=== PATIENT | female | born 1985 | race African-American/Black ===

== ENCOUNTER 2023-07-20 10:05 | Outpatient (AMB) | payer OTHER, SELFPAY ==
--- NOTE | 2023-07-20 10:07 | MHC.PC.OV ---
Vital Signs 07/20/23 10:10 07/20/23 10:41 Height 5 ft 3 in Weight 158 lb 4 oz BMI 28.0 BP 120/94 H 120/84 Blood Pressure Location Lt brachial Position Sitting Pulse 85 Pulse Source Pulse Oximeter Pulse Oximetry (%) 99 Oxygen Delivery Method Room Air Intake Visit Reasons: Last Scourer Annual Physical~ Is last menstrual period known: Yes Last menstrual period: 07/20/23 Allergies No Known Allergies Allergy (Verified 07/20/23 10:50) Tobacco use date assessed: 08/19/23 Dental Screening Dental Screen Date: 07/20/23 Did you have a dental visit in the last 12 months?: Yes Did you have a dental problem in the last 6 months where you did not have access to dental care?: No Was dental information given to patient?: No HPI HPI Comments History of Present Illness Details The patient is a 38-year-old female in today to establish care and have an annual physical exam. She is up-to-date with OBGYN, her last appointment was through [facility] on 06/01/2023. She is due for mammogram next year. She is up-to-date with her immunizations. She is currently employed as a certified nurse's aide. She has a past medical history significant for anemia. She has no complaints at time of appointment [facility] Medical History (Updated 07/20/23 @ 13:47 by ARLETTE Beckford) History of anemia Surgical History (Updated 07/20/23 @ 10:19 by Tianna Marcano MA) History of appendectomy Social History Housing: Apartment Patient Tobacco Use Status: Never used Tobacco e-Cigarette/Vaping Use: Never Used service: No Current occupational status: employed Current occupational exposures/hazards: No Cognitive needs: No Hearing needs: No Vision needs: No Female Reproductive History Menstrual Date of last menstrual period: 07/20/23 Questionnaire PHQ-9 Over the last 2 weeks, how often have you been bothered by any of the following problems? 1. Little interest or pleasure in doing things: not at all 2. Feeling down, depressed, or hopeless: not at all 3. Trouble falling or staying asleep, or sleeping too much: not at all 4. Feeling tired or having little energy: more than half the days 5. Poor appetite or overeating: not at all 6. Feeling bad about yourself - or that you are a failure or have let yourself or your family down: not at all 7. Trouble concentrating on things, such as reading the newspaper or watching television: not at all 8. Moving or speaking so slowly that other people could have noticed. Or the opposite - being so fidgety or restless that you have been moving around a lot more than usual: not at all 9. Thoughts that you would be better off or of hurting yourself in some way: not at all Total score: 2 Depression Screening Interpretation: Negative Depression Screening Done: Yes 71957 - PHQ-9 Billing: Yes Source: Developed by Drs. Luis Daniel Gore, Shy Motta, Cole Brady and colleagues, with an educational shine from [employer]. Thrive Questionnaire Date Thrive assessed: 07/20/23 I am a: Patient What is your living situation today?: I have a steady place to live Within the past 12 months, did the food you bought not last and you didn't have the money to get more?: Never true Within the past 12 months, did you worry whether your food would run out before you got money to buy more?: Never true Do you have trouble paying for medicines?: No Do you have trouble getting transportation to medical appointments?: No Do you have trouble paying your heating and electricity bill?: No Do you have trouble taking care of your child, family member or friend?: No Do you have trouble with day-to-day activities such as bathing, preparing meals, shopping, managing finances, etc.?: No Are you currently unemployed and looking for a job?: No Are you interested in more education?: Yes Please select the resources that you would like help with: Education Currently or been in a relationship where the following occur: no concerns reported AUDIT C Alcohol Use Questionnaire (AUDIT-C) 1. How often do you have a drink containing alcohol?: Never 3. How often do you have six or more drinks on one occasion?: Never Total Score: 0 Score Reviewed/Action Taken: Yes MORENITA-7 AMB Questionnaire MORENITA-7 Date MORENITA - 7 assessed: 07/20/23 Feeling nervous, anxious, or on edge: 0 = Not at all Not being able to stop or control worryin = Not at all Worrying too much about different things: 0 = Not at all Trouble relaxin = Not at all Being so restless that it is hard to sit still: 0 = Not at all Becoming easily annoyed or irritable: 0 = Not at all Feeling afraid as if something awful might happen: 0 = Not at all Total MORENITA-7 score (0-4 normal; 5-9 mild; 10-14 moderate; 15-21 severe): 0 Source: Developed by Drs. Luis Daniel Gore, Shy Motta, Cole Brady and colleagues, with an educational shine from [employer]. MORENITA-7 Assessment Billing MORENITA-7 Assessment Tool: MORENITA-7 Assessment 57029 Physical exam (Primary Care) Vital Signs: Last Vital Signs Pulse 85 07/20/23 10:10 BP 120/84 07/20/23 10:41 Pulse Ox 99 07/20/23 10:10 Oxygen Delivery Method Room Air 07/20/23 10:10 Care Plan Goal for BP management: Vital signs reviewed and are stable BMI result Body Mass Index 28.0 Tobacco/Smoking Status: Tobacco use Status Tobacco use date assessed 08/19/23 07/20/23 10:15 Patient Tobacco Use Status Never used Tobacco 07/20/23 10:15 e-Cigarette/Vaping Use Never Used 07/20/23 10:15 PHQ-9: PHQ-9 Score PHQ-9: Total score 2 07/20/23 11:00 Depression Screening Interpretation: Negative Thrive Assessment: Date of Thrive Assessment Date Thrive assessed 07/20/23 07/20/23 11:00 Currently or been in a relationship where the following occur: no concerns reported Const General: cooperative and no acute distress Orientation/consciousness: patient oriented x3 Limitations: no limitations HENMT Head: Yes normal to inspection and Yes normocephalic Ears: TM's normal bilaterally General nose exam: Normal external nose present and Normal septum present Teeth and gingiva: dentition normal Eyes General: appearance normal, both eyes and all related structures Sclerae: sclerae normal Pupils: Equal, round and reactive pupils present EOM: EOMs intact bilaterally Direct Ophthalmoscopy: normal light reflex and no photophobia Neck Neck: Yes normal visual inspection, Yes full ROM and Yes no lymphadenopathy Resp Effort & Inspection: normal respiratory effort Auscultation: clear to auscultation bilaterally Cardio Rate: regular rate Rhythm: regular rhythm Heart sounds: S1 normal heart sound present and S2 normal heart sound present GI Inspection: Yes normal to inspection Auscultation: normal bowel sounds General: Yes no CVA tenderness Back/Spine/Pelvis Back: no CVA tenderness Skin General skin exam: no rashes or lesions noted Neuro General: patient oriented x3 Cranial nerves: Yes CN's II-XII intact bilaterally and Yes Equal, round and reactive pupils present Deep tendon reflexes (DTR's): Right patellar reflex intensity grade: 2+ and Left patellar reflex intensity grade: 2+ Extrem General: Yes normal to inspection and Yes full ROM Psych Insight: Good insight present (Psych) Judgement: Good judgement present (Psych) Results Reviewed Results Reviewed: Will call patient with lab results Assessment and Plan Assessment & Plan (1) Physical exam: Comment: Will draw CBC, CMP, UA, TSH, T4, iron profile, vitamin-D, lipid profile. Code(s): Z. - Encounter for general adult medical examination without abnormal findings Plan Patient will have follow-up physical exam in 1 year. Orders: Orders Complete Blood Count Auto Diff 07/20/23 Z00.00 - Encounter for general adult medical examination without abnormal findings Vitamin D 25-OH (D2 and D3) 07/20/23 Z00.00 - Encounter for general adult medical examination without abnormal findings Comprehensive Met. Panel 07/20/23 Z00.00 - Encounter for general adult medical examination without abnormal findings IRON PROFILE 07/20/23 Z00.00 - Encounter for general adult medical examination without abnormal findings Lipid Panel 07/20/23 Z00.00 - Encounter for general adult medical examination without abnormal findings UA CC w/rflx Micro + Cult 07/20/23 Z00.00 - Encounter for general adult medical examination without abnormal findings TSH reflex Free T4 07/20/23 Z00.00 - Encounter for general adult medical examination without abnormal findings Referrals Dermatology Referral B07.9 - Viral wart, unspecified Coding Level of Care Code New Pt Level 4 (02600) Diagnoses Physical exam Z00.00 Additional Codes MORENITA-7 Assessment Billing - MORENITA-7 Assessment Tool: MORENITA-7 Assessment 29715 ([id number]) Time Spent (min) 30
[2023-07-20 10:10] VITALS: BP 120/94; PULSE 85; O2SAT 99; BMI 28.0
[2023-07-20 10:41] VITALS: BP 120/84
== END 2023-07-20 10:42 | disposition home or self-care (01) ==
PROVIDERS: PCP Internal Medicine; Visit Provider Nurse Practitioner Primary Care
DX: Z00.00 Encounter for general adult medical examination without abnormal findings (principal)
CPT/HCPCS: 99499

== ENCOUNTER 2023-07-20 10:50 | Outpatient (REF) | payer OTHER, SELFPAY ==
[2023-07-20 13:37] LABS: MANUAL DIFF FLAG NO
[2023-07-20 14:05] LABS: Appearance Urine Clear; Color Urine Yellow; Glucose Urine UA Negative (Negative); Leukocyte Esterase Urine Negative (Negative); Nitrite Urine Negative (Negative); PH 5.5 (5.0-9.0); UMIC TRIGGER UACC YES; Urine Blood Moderate (2+) (Negative); Urine Ketones Negative (Negative); Urine Protein Negative (Neg-Trace)
[2023-07-20 14:05] LABS: Basophils Percent Auto 0.9 % (0-2); Eosinophils Absolute Auto 0.1 X10*3/uL (0.0-0.4); Eosinophils Percent Auto 1.8 % (0-4); Hematocrit 41.3 % (37.0-47.0); Hemoglobin 12.8 g/dl (12.0-16.0); Imm Gran Abs Auto 0.02 X10*3/uL (0.00-0.03); Imm Gran Pct Auto 0.4 % (0.0-0.4); Lymphocytes Absolute Auto 1.9 X10*3/uL (1.2-4.9); Lymphocytes Percent Auto 42.2 % (20-40); Mean Corpuscular Hemoglobin 24.8 pg (27.0-33.0); Mean Platelet Volume 10.2 fL (9.4-12.3); Monocytes Absolute Auto 0.4 X10*3/uL (0.1-1.2); Monocytes Percent Auto 8.6 % (2-11); Neutrophils Absolute Auto 2.1 x10*3/uL (2.0-8.3); Neutrophils Percent Auto 46.1 % (45-73); Platelet Count 220 X10*3/uL (160-400); Red Blood Count 5.16 X10*6/uL (4.20-5.50); Red Cell Distribution Width 20.7 % (11.0-16.0); White Blood Count 4.5 X10*3/uL (4.8-10.8)
[2023-07-20 14:20] LABS: Bacteria Urine Trace (None Seen); Hyaline Casts Urine 0-2 /LPF (0-2); RBC Urine 0-2 /HPF (0-2); WBC Urine 0-5 /HPF (0-5)
[2023-07-20 14:27] LABS: TSH reflex Free T4 1.02 uIU/mL (0.32-4.0)
[2023-07-20 14:34] LABS: Alanine Aminotransferase 19 U/L (0-31); Alkaline Phosphatase 77 U/L (39-117); Anion Gap 9 (12-20); Aspartate Amino Transferase 21 U/L (5-31); Bilirubin Total 0.2 mg/dL (0.0-1.0); Blood Urea Nitrogen 6 mg/dL (9-16); Calcium 9.8 mg/dL (8.4-10.2); Carbon Dioxide 30 mmol/L (22-29); Chloride 105 mmol/L (96-108); Cholesterol 182 mg/dL (<200); Estimated Glomerular Filt Rate > 60; Glucose Random 87 mg/dL (60-115); HDL Cholesterol 52 mg/dL (>40); Iron 340 mcg/dL (30-160); LDL Cholesterol Calculated 117 mg/dL (<100); Percent Iron Saturation 93 % (15-50); Potassium 3.6 mmol/L (3.3-5.1); Sodium 140 mmol/L (135-145); Total Iron Binding Capacity 365 mcg/dL (228-428); Total Protein 7.4 g/dL (6.5-8.0); Triglycerides 68 mg/dL (<150); Unsaturated Iron Binding < 25 ug/dL
[2023-07-24 15:23] LABS: Vitamin D 25-OH, D2 <4 ng/mL; Vitamin D 25-OH, D3 14 ng/mL; Vitamin D 25-OH, Total 14 ng/mL (30-100)
== END 2023-07-20 10:51 | disposition home or self-care (01) ==
LOC: HO.HMGCLDS 10:50
PROVIDERS: PCP Nurse Practitioner Primary Care; Visit Provider Nurse Practitioner Primary Care
DX: Z00.00 Encounter for general adult medical examination without abnormal findings (principal)
CPT/HCPCS: 36415; 80053; 80061; 81001; 81003; 82306; 83540; 84443; 85025

== ENCOUNTER → 2024-10-25 08:04 | Outpatient (BNVA) | payer SELFPAY | PROVIDERS: PCP Nurse Practitioner Primary Care; Visit Provider Internal Medicine ==